=== PATIENT | female | born 1995 ===

== ENCOUNTER 2017-12-26 12:07 | Outpatient (CLI) | payer OTHER ==
[~2017-12-26] VITALS: Ht 121.9 cm; Wt 56.7 kg
== END 2017-12-26 12:20 | disposition home or self-care (01) ==
LOC: OFIC 805 12:07
DX: R59.0 Localized enlarged lymph nodes (principal)

== ENCOUNTER 2021-01-22 08:00 | Outpatient (CLI) | payer OTHER | END 2021-01-22 08:15 | disposition home or self-care (01) | LOC: PPH VACUNA 08:00 | PROVIDERS: ATTEND Emergency Medicine Pediatric Emergency Medicine | DX: Z23 Encounter for immunization (principal) ==